=== PATIENT | female | born 1985 | race Caucasian/White ===

== ENCOUNTER 2021-03-05 14:28 | Emergency (ER) | payer SELFPAY ==
[~2021-03-05 14:28] MED LIST: Iopamidol-370 76% 500 ML 1 ML ONE
[2021-03-05 15:44] LABS: #Eosinphils 0.2 thou/uL (0.0-0.7); #Lymphocytes 2.4 thou/uL (1.20-3.40); #Monocytes 0.5 thou/uL (0.11-0.59); #Neutrophils 3.3 thou/uL (1.40-6.50); %Basophils 0.5 % (0.0-1.0); %Eosinophils 2.4 % (0.0-10.0); %Lymphocytes 37.4 % (21.0-51.0); %Monocytes 8.1 % (0.0-10.0); %Neutrophils 51.7 % (42.0-75.0); Hemoglobin 14.9 g/dL (12.0-16.0); Mean Corpuscular Volume 88.7 fL (78.0-98.0); Mean Platelet Volume 8.1 fL (7.4-10.4); Platelet Count 228 thou/uL (130-400); RBC Distribution Width 11.1 % (11.5-14.5); Red Blood Cell (RBC) Count 4.81 mill/uL (4.20-5.40); White Blood Cell (WBC) Count 6.4 thou/uL (4.8-10.8)
[2021-03-05 15:56] LABS: Bilirubin Negative (Negative); Blood, Urine Negative (Negative); Clarity Clear (Clear); Glucose, Urine (Dipstick) Normal (Negative); Ketone, Urine Negative (Negative); Leukocyte Negative Leu/uL (Negative); Nitrite Negative (Negative); Protein, Urine (Dipstick) Negative (Neg-Trace); Specific Gravity, Urine 1.019 (1.002-1.036); Urobilinogen Normal mg/dL (Less than 2); pH, Urine 6.5 (5.0-9.0)
[2021-03-05 16:09] LABS: ALT (SGPT) 25 U/L (8-55); AST (SGOT) 16 U/L (5-34); Albumin 3.9 g/dL (3.5-5.0); Alkaline Phosphatase 117 U/L (40-110); Anion Gap 12 mmol/L (10-20); BUN (Urea Nitrogen) 15 mg/dL (7.0-18.7); Bilirubin, Total 0.4 mg/dL (0.2-1.2); Calc. Creatinine Clearance 0 mL/min (70-130); Carbon Dioxide 25 mmol/L (22-29); Chloride 106 mmol/L (98-107); Globulin 3.3 g/dL (2.4-3.5); Glucose 91 mg/dL (70-105); Protein, Total 7.2 g/dL (6.0-8.3); Sodium 139 mmol/L (136-145)
[2021-03-05] MEDS ORDERED: Ondansetron PF 4 MG/2 ML Vial ONE (16:43)
[2021-03-05] MEDS ORDERED: Morphine 4 MG/ML VIAL ONE (16:43)
== END 2021-03-05 19:35 | disposition home or self-care (01) ==
LOC: ERS 14:28
DX: K43.9 Ventral hernia without obstruction or gangrene (principal)
CPT/HCPCS: 36415; 74177; 80053; 81003; 85025; 96374; 96375; J2270; J2405; Q9967

== ENCOUNTER 2021-03-13 19:05 | Emergency (ER) | payer MEDICAID, SELFPAY ==
[2021-03-13] MEDS ORDERED: Ibuprofen 800 MG TAB ONE (22:06)
== END 2021-03-13 22:45 | disposition home or self-care (01) ==
LOC: ERS 19:05
DX: R07.81 Pleurodynia (principal); I45.10 Unspecified right bundle-branch block; E28.2 Polycystic ovarian syndrome; Z87.19 Personal history of other diseases of the digestive system
CPT/HCPCS: 71045; 93005